=== PATIENT | male | born 1960 | race Caucasian/White ===

== ENCOUNTER 2016-09-17 22:51 | Emergency (ER) | payer SELFPAY ==
[~2016-09-17 22:51] MED LIST: APRES25 PO; ASABAYER PO; CLIN200 PO; DID NOT BRING LIST; DURICEF PO; ENDOCET1 TA3 PO; ENDOCET1 TAB PO; GLUCPH PO; INDO50 PO; KLOR-CON 1010 MEQ PO; L20 PO; L40 PO; LORTAB10 PO; MONODOX100 MG PO; PLAVIX PO; TRICOR145 PO; Z300 PO; [UNRECOGNIZED DRUG - REMARK]; [UNRECOGNIZED DRUG - REMARK]
== END 2016-09-17 23:23 | disposition home or self-care (01) ==
LOC: ER 22:51
DX: M79.1 Myalgia (principal); E66.9 Obesity, unspecified; I10 Essential (primary) hypertension; Z88.8 Allergy status to other drugs, medicaments and biological substances; Z79.899 Other long term (current) drug therapy
CPT/HCPCS: 96372; 99282